=== PATIENT | female | born 1990 | race Caucasian/White ===

== ENCOUNTER 2018-01-03 20:19 | Emergency (ER) | payer OTHER ==
[~2018-01-03] VITALS: Ht 172.7 cm; Wt 80.0 kg
[2018-01-03 20:30] VITALS: BP 130/59
[2018-01-03] MEDS ORDERED: L.E.T SOLUTION TP ONE ×2 (20:45→21:00)
[2018-01-03] MEDS ORDERED: IBUPROFEN 200 MG TABLET PO ONE (21:00)
[2018-01-03] MEDS ORDERED: IBUPROFEN 200 MG TABLET ONE (21:19)
== END 2018-01-03 21:36 | disposition home or self-care (01) ==
LOC: ED 21:05
DX: S01.111A Laceration without foreign body of right eyelid and periocular area, initial encounter (principal); V49.49XA Driver injured in collision with other motor vehicles in traffic accident, initial encounter; Y93.89 Activity, other specified; Y92.410 Unspecified street and highway as the place of occurrence of the external cause; Y99.8 Other external cause status
CPT/HCPCS: 99283